=== PATIENT | male | born 1935 | race Caucasian/White ===

== ENCOUNTER 2017-05-20 09:40 | Day surgery (SDC) | payer MEDICARE, OTHER ==
[~2017-05-20 09:40] MED LIST: Bupivacaine 0.5% 10 ML SDV ONE; Lidocaine 1% 20 ML MDV ONE; Sodium Chloride 0.9% 1,000 ML IV SCH; ceFAZolin 2 GM in Premix Bag 1 BAG IV ONE
--- NOTE | 2017-05-20 09:58 | PCM.PREANE ---
Preanesthetic Assessment - Anesthesia/Transfusion/Family Hx Anesthesia History: Prior Anesthesia Without Reaction Family History of Anesthesia Reaction: No Transfusion History: No Prior Transfusion(s) - Review of Systems General: No Symptoms Pulmonary: No Symptoms Cardiovascular: No Symptoms Gastrointestinal: No Symptoms Neurological: No Symptoms Other: Reports: None - Physical Assessment NPO Status Date: 05/19/17 Weight: 75.296 kg ASA Class: 3 Mental Status: Alert & Oriented x3 Airway Class: Mallampati = 3 Dentition: Reports: Dentures ROM/Head Extension: Full Lungs: Clear to Auscultation, Normal Respiratory Effort Cardiovascular: Regular Rate, Regular Rhythm - Allergies Allergies/Adverse Reactions: Allergies Allergy/AdvReac Type Severity Reaction Status Date / Time No Known Allergies Allergy Verified 05/18/17 11:35 - Anesthesia Plan Pre-Op Medication Ordered: None - Acknowledgements Anesthesia Type Planned: General Anesthesia Pt an Appropriate Candidate for the Planned Anesthesia: Yes Alternatives and Risks of Anesthesia Discussed w Pt/Guardian: Yes Pt/Guardian Understands and Agrees with Anesthesia Plan: Yes PreAnesthesia Questionnaire HEENT History: Reports: None Cardiovascular History: Reports: Afib Other Cardiovascular History: takes low dose aspirin daily Respiratory History: Reports: None Gastrointestinal History: Reports: GERD Genitourinary History: Reports: BPH Musculoskeletal History: Reports: None Neurological History: Reports: Other (See Below) Other Neuro History: dementia Psychiatric History: Reports: Dementia Endocrine/Metabolic History: Reports: None Hematologic History: Reports: None Immunologic History: Reports: None Oncologic (Cancer) History: Reports: None Dermatologic History: Reports: Cellulitis - Past Surgical History Head Surgeries/Procedures: Reports: None GI Surgical History: Reports: Appendectomy - SUBSTANCE USE Smoking Status *Q: Never Smoker Recreational Drug Use History: No - HOME MEDS Home Medications: Home Meds Aspirin [Adult Low Dose Aspirin EC] 81 mg PO DAILY 05/18/17 [History] Ibuprofen 400 mg PO Q8H PRN 05/18/17 [History] Mirtazapine [Remeron] 15 mg PO DAILY 05/18/17 [History] Omeprazole 20 mg PO DAILY 05/18/17 [History] Ondansetron HCl [Zofran] 4 mg PO Q4H PRN 05/18/17 [History] PNV95/Ferrous Fumarate/FA [ Tablet] 1 each PO DAILY 05/18/17 [History] Rivastigmine Tartrate [Rivastigmine] 6 mg PO BID 05/18/17 [History] Thiamine HCl 1 tab PO DAILY 05/18/17 [History] risperiDONE 0.5 mg PO BID 05/18/17 [History] - CURRENT (IN HOUSE) MEDS Current Meds: Current Medications Sodium Chloride (Normal Saline) 1,000 mls @ 125 mls/hr IV ASDIRECTED GUANAKO Discontinued Medications Bupivacaine HCl (Sensorcaine-Mpf 0.5%) Confirm Administered Dose 20 ml .ROUTE .STK-MED ONE Stop: 05/20/17 07:31 Cefazolin Sodium/Dextrose 2 gm (/ Premix) 50 mls @ 100 mls/hr IV ONETIME ONE Stop: 05/20/17 00:36 Lidocaine HCl (Xylocaine 1%) Confirm Administered Dose 20 ml .ROUTE .STK-MED ONE Stop: 05/20/17 07:31
[2017-05-20] MEDS ORDERED: Lidocaine 2% 5 ML SDV ONE (10:12)
[2017-05-20] MEDS ORDERED: fentaNYL 100 MCG/2 ML SDV ONE (10:13)
[2017-05-20] MEDS ORDERED: Propofol 200 MG/20 ML SDV ONE (10:13)
[2017-05-20] MEDS ORDERED: Midazolam 1 MG/ML 2 ML SDV ONE (10:13)
[2017-05-20] MEDS ORDERED: Lactated Ringers 1,000 ML IV SCH (10:30)
[2017-05-20] MEDS ORDERED: ePHEDrine 50 MG/ML SDV ONE (10:50)
--- NOTE | 2017-05-20 10:51 | PN ---
IDENTIFICATION: The patient is an 81-year-old male. PREOPERATIVE DIAGNOSIS: Osteomyelitis of the left great toe. PLANNED PROCEDURE: Amputation of the left great toe. CONSENT: Signed by the guardian. Telephone consent and in the chart. ANESTHESIA: Light general. The patient has been confirmed as n.p.o. since midnight. HISTORY AND PHYSICAL: Completed by Dr. Campuzano with no contraindications to surgery. ALLERGIES: The patient has no known allergies to medications. CURRENT MEDICATIONS: 1. Exelon 6 mg b.i.d. 2. Risperdal 0.5 mg b.i.d. 3. Omeprazole 20 mg daily. 4. Remeron 50 mg at bedtime. 5. Aspirin 81 mg 1 daily. MEDICAL HISTORY: 1. Senile dementia. 2. Paroxysmal atrial fibrillation. 3. COPD. 4. Dyslipidemia. 5. BPH. 6. General deformity of osteoarthritis with gait disturbance. The patient presents for amputation of left great toe surgery today. No contraindications to surgery noted. No guarantees given or implied. ABBI VENEGAS /[id number]
[2017-05-20] MEDS ORDERED: fentaNYL 100 MCG/2 ML SDV IVPUSH PRN (11:03)
--- NOTE | 2017-05-20 12:13 | PCM.OPNOTE ---
- General Post-Op/Procedure Note Date of Surgery/Procedure: 05/20/17 Operative Procedure(s): amputation great toe left foot Findings: consistent with dx Pre Op Diagnosis: osteomyelitis left great toe Post-Op Diagnosis: osteomyelitis left great toe Anesthesia Technique: General LMA Primary Surgeon: Mak Germain Anesthesia Provider: Thomas Alexis Pathology: left great toe EBL in mLs: 50 Surgical Drain/Tube Type: Loy Complications: none Condition: Good Free Text/Narrative:: injectables: 8 cc 1:1 mixture of 1% lidocaine plain and 0.5% marcaine plain
--- NOTE | 2017-05-20 14:31 | PCM48HPAN ---
Post Anesthesia Note - EVALUATION WITHIN 48HRS OF ANESTHETIC Vital Signs in Normal Range: Yes Patient Participated in Evaluation: Yes Respiratory Function Stable: Yes Airway Patent: Yes Cardiovascular Function Stable: Yes Hydration Status Stable: Yes Pain Control Satisfactory: Yes Nausea and Vomiting Control Satisfactory: Yes Mental Status Recovered: Yes
--- NOTE | 2017-05-20 14:31 | PCM.POSTAN ---
POST ANESTHESIA ASSESSMENT - MENTAL STATUS Mental Status: Alert, Oriented - RESPIRATORY Respiratory Status: Respiratory Rate WNL, Airway Patent, O2 Saturation Stable - CARDIOVASCULAR CV Status: Pulse Rate WNL, Blood Pressure Stable - GASTROINTESTINAL GI Status: No Symptoms - POST OP HYDRATION Hydration Status: Adequate & Stable
[2017-05-20 15:06] VITALS: BP 146/84
--- NOTE | 2017-05-21 03:23 | OR ---
SURGEON: Mak Germain DPM DATE OF PROCEDURE: 05/20/2017 PREOPERATIVE DIAGNOSIS: Osteomyelitis of the left great toe. PROCEDURE: Amputation of the left great toe. CONSENT: Consent was obtained from the patient's guardian and placed in the chart. ANESTHESIA: Very light version of general anesthesia. HEMOSTASIS: Above ankle pneumatic tourniquet inflated to a pressure of 250 mmHg after an Esmarch bandage exsanguination. JUSTIFICATION FOR PROCEDURE: The patient was seen by me in my office in the last 1 to 2 months, initially presented with an infection over the dorsal aspect of his left great toe at the interphalangeal joint, which was severely infected and upon debridement not only probed the bone, but actually had exposed bone. The patient is suffering from dementia and lives in a facility that provides care to him 27/04. The risk of this infection spreading proximally to the rest of the patient's foot; in my opinion outweighs the benefit of trying to keep any portion of this toe; and his physician, Dr. Campuzano, completely agrees. Consent was obtained from the patient's guardian, who was made aware of the need for the surgery, no guarantees have been given or implied. DESCRIPTION OF PROCEDURE: The patient was brought to the operating room and placed on the operating table in a supine position, at which time an aseptic scrub and drape was performed about the patient's left lower extremity and light general anesthesia was administered. The planned incision was made with a marking pen and then the left foot was exsanguinated with an Esmarch bandage and elevated and the pneumatic tourniquet was inflated to a pressure of 250 mmHg. The tourniquet was set just proximal to the ankle above the malleoli. Using a racket-type of incision, the toe was disarticulated at the first metatarsophalangeal joint. Incision was made through the skin and carried through to the subcutaneous and deep layers with all small bleeders bovied as necessary and the extensor and flexor tendon to the great toe were both retracted distally and cut as proximally as possible to prevent any unnecessary tissue from impeding the closure and the healing of the site. After disarticulation of the toe, which was sent in one piece to Pathology for gross examination, the entire area was flushed with copious amounts of normal sterile saline. There was some moderate blood loss during this procedure as it appears that the aspirin medication was not held as it should have been prior to the procedure. However, using Bovie and Surgicel material, the bleeding was controlled. Closure was accomplished using some 3-0 Vicryl sutures for the subcutaneous tissue and the skin was reapproximated using 4-0 Prolene suture. A [place] drain was placed to enable further drainage and the entire site was covered with Betadine-soaked Xeroform gauze. Prior to that, an injection of 8 mL of 1:1 mixture of 1% lidocaine plain and 0.5% Marcaine plain was infiltrated about the patient's left foot in the area of the closure from the amputation. Following the Betadine-soaked Xeroform gauze layer, a 4x4 gauze and Kerlix roll followed by an Gary bandage was applied to the patient's left foot. The patient's caregivers have been provided with written instructions regarding followup. [place] has been prescribed for analgesic use and wound care instructions will be discussed in further detail pending progress by the patient and I do expect to see this patient in my office next week. Postoperative x-ray was taken, demonstrating the amputation of the left great toe. The patient was brought from the operating room to the recovery area and I held the patient in recovery for approximately 2 hours to be certain that the bleeding was controlled. After I was informed that the bandages remained dry after over 2 hours, I did allow the patient to be discharged and transported back to the facility. They care for him in [place]. Caregivers do have my phone number should any concerns arise. ABBI VENEGAS /[id number]
--- NOTE | 2017-05-21 15:40 | CR ---
EXAMINATION: Left foot HISTORY: Amputation COMPARISON: None TECHNIQUE: 2 views FINDINGS/IMPRESSION: Postoperative control films demonstrate amputation of the first digit at the MT P joint.
== END 2017-05-20 14:45 | disposition home or self-care (01) ==
LOC: MW.SDS 09:40
PROVIDERS: ATTEND Podiatrist Foot & Ankle Surgery
PROC: 0Y6Q0Z0 Detachment at Left 1st Toe, Complete, Open Approach (ICD-10-PCS; principal; 2017-05-20)
DX: M86.672 Other chronic osteomyelitis, left ankle and foot (principal); L97.529 Non-pressure chronic ulcer of other part of left foot with unspecified severity; F03.90 Unspecified dementia, unspecified severity, without behavioral disturbance, psychotic disturbance, mood disturbance, and anxiety; I48.0 Paroxysmal atrial fibrillation; J44.9 Chronic obstructive pulmonary disease, unspecified; E78.5 Hyperlipidemia, unspecified; N40.0 Benign prostatic hyperplasia without lower urinary tract symptoms; M15.9 Polyosteoarthritis, unspecified; K21.9 Gastro-esophageal reflux disease without esophagitis; Z90.49 Acquired absence of other specified parts of digestive tract; Z98.890 Other specified postprocedural states; Z79.82 Long term (current) use of aspirin; Z79.899 Other long term (current) drug therapy
CPT/HCPCS: 28820; 76000; J2250; J3010; J7120; 01480; 88305; 88311; J2704